=== PATIENT | female | born 1940 | race Caucasian/White ===

== ENCOUNTER 2023-03-17 12:59 | Outpatient (REF) | payer MEDICARE, SELFPAY ==
[2023-03-17 14:58] LABS: Vitamin B12 1363 pg/mL (200-900)
== END 2023-03-17 13:00 | disposition home or self-care (01) ==
LOC: HO.LAB 12:59
PROVIDERS: PCP Internal Medicine; Visit Provider Psychiatry & Neurology Neurology
DX: G30.9 Alzheimer's disease, unspecified (principal)
CPT/HCPCS: 36415; 82607